=== PATIENT | female | born 1995 | race American Indian/Alaskan Native ===

== ENCOUNTER 2016-07-24 19:08 | Emergency (ER) | payer OTHER ==
[2016-07-24] MEDS ORDERED: MOTRIN PO ONE (23:23)
[2016-07-24] MEDS ORDERED: DELTASONE PO ONE (23:23)
--- NOTE | 2016-07-24 23:28 | Emergency Department Report ---
HPI - General Chief Complaint: Animal Bite Time Seen by Provider: 07/24/16 23:23 - HPI HPI: She is a 21-year-old female who presents to ED complaining of left thigh pain and redness from an insect bite times one day. Patient states yesterday she noticed a bump on her left inner thigh tenderness, painful. Patient states after she took a shot yesterday she saw some white discharge, out of the palm. Patient states she thinks she was bitten but did not see an insect. Patient denies fever/chills/nausea/vomiting/abdominal pain/dizziness/chest pain or shortness of breath. ED Past Medical Hx - Past Medical History Previous Medical History?: No - Surgical History Past Surgical History?: No - Social History Smoking Status: Never Smoker Substance Use Type: None - Medications Home Medications: Home Medications Medication Instructions Recorded Confirmed Last Taken Type Cephalexin [Keflex] 500 mg PO BID #10 capsule 07/24/16 Unknown Rx Ibuprofen [Motrin 800 MG tab] 800 mg PO ONCE #40 tablet 07/24/16 Unknown Rx predniSONE [Deltasone] 5 mg PO QDAY #3 tab 07/24/16 Unknown Rx ED Review of Systems ROS: Stated complaint: INSECT BITE LT LEG Other details as noted in HPI Constitutional: denies: chills, fever Eyes: denies: eye pain, eye discharge, vision change ENT: denies: ear pain, throat pain Respiratory: denies: cough, shortness of breath, wheezing Cardiovascular: denies: chest pain, palpitations, orthopnea Endocrine: no symptoms reported. denies: flushing, intolerance to cold, intolerance to heat Gastrointestinal: denies: abdominal pain, nausea, vomiting, diarrhea, constipation, hematemesis Genitourinary: denies: urgency, dysuria, frequency, hematuria, discharge, abnormal menses Musculoskeletal: denies: back pain, joint swelling, arthralgia Skin: denies: rash, lesions Neurological: denies: headache, weakness, numbness, paresthesias, confusion, abnormal gait Psychiatric: denies: anxiety, depression Hematological/Lymphatic: denies: easy bleeding, easy bruising Physical Exam - Physical Exam Vital Signs: Vital Signs 07/24/16 19:29 Temperature 98.7 F Pulse Rate 94 H Respiratory 20 Rate Blood Pressure 157/106 O2 Sat by Pulse 100 Oximetry Physical Exam: GENERAL: Alert and oriented x3, no apparent distress, Normal Gait, atraumatic. HEAD: Head is normocephalic and a-traumatic. EYES: Extra ocular muscles are intact. Pupils are equal, round, and reactive to light and accommodation. EARS: symetrical, atraumatic, non tender, gross auditory nml bilaterally. NOSE: Nose symetrical, Nontender,Nares appeared normal. MOUTH:Mouth is well hydrated and without lesions. Tonsils nonerythematous or swollen Patent airways. NECK: Supple. Non edematous, No carotid bruits. No lymphadenopathy or thyromegaly. LUNGS: Symetrical with respiration, No wheezing, no rales or crackles, CTAB. HEART: S1, S2 present, regular rate and rhythm without murmur, no rubs, no gallops. ABDOMEN: No organomegaly was noted,Positive bowel sounds, soft, and non- distended. . Nontender to palpation on all Quadrants, NO CVA tenderness. EXTREMITIES/MUSCULOSKELETAL: No cyanosis, clubbing, rash, lesions or edema. Full ROM bilaterally. UE/LE Pulses 2+ bilaterally. LE and UE 5+ strength bilaterally. Left inner upper thigh 0.5 cm cellulitis, nondraining, erythematous. NEUROLOGIC: No focal Deficit, Cranial nerves II through XII are grossly intact. No loss of sensation, PSYCHIATRIC: Mood is congruent with affect, denies suicidal or homicidal ideations. SKIN: Warm and dry, No lesions, No ulceration or induration present. ED Course Vital Signs 07/24/16 19:29 Temperature 98.7 F Pulse Rate 94 H Respiratory 20 Rate Blood Pressure 157/106 O2 Sat by Pulse 100 Oximetry ED Medical Decision Making - Medical Decision Making 21-year-old female presents with cellulitis of the inner thigh. ED course: Patient received Motrin for pain and 10 mg of prednisone. Discussed the patient take antibiotics as prescribed. Vital signs stable. Patient is not in any acute or respiratory distress. Discussed the patient to follow up with primary care physician. Discussed the patient is symptoms worsen or new symptoms arise to return to ED. Discussed warm compresses TID. Critical care attestation.: If time is entered above; I have spent that time in minutes in the direct care of this critically ill patient, excluding procedure time. ED Disposition Clinical Impression: Cellulitis Qualifiers: Site of cellulitis: extremity Site of cellulitis of extremity: lower extremity Laterality: left Qualified Code(s): L03.116 - Cellulitis of left lower limb Disposition: DISCHARGED TO HOME OR SELFCARE Is pt being admited?: No Does the pt Need Aspirin: No Condition: Stable Instructions: Cellulitis (ED), Insect Bite or Sting (ED) Prescriptions: Cephalexin [Keflex] 500 mg PO BID #10 capsule Ibuprofen [Motrin 800 MG tab] 800 mg PO ONCE #40 tablet predniSONE [Deltasone] 5 mg PO QDAY #3 tab Referrals: PRIMARY MD HELADIO [Primary Care Provider] - 3-5 Days LOUIS SPENCER MD [Referring] - 3-5 Days [facility] [Outside] - 3-5 Days [facility] [Outside] - 3-5 Days [facility] [Outside] - 3-5 Days Forms: Work/School Release Form(ED) Time of Disposition: 23:28
[2016-07-24 23:34] VITALS: BP 147/96
== END 2016-07-25 00:28 | disposition home or self-care (01) ==
LOC: ED 19:08
DX: L03.116 Cellulitis of left lower limb (principal)
CPT/HCPCS: 99282; J7512

== ENCOUNTER 2018-12-18 10:05 | Emergency (ER) | payer BC, OTHER ==
[2018-12-18 10:12] VITALS: BP 153/102
--- NOTE | 2018-12-18 11:14 | Emergency Department Report ---
- General Chief Complaint: Sore Throat Stated Complaint: SICK FEELING Time Seen by Provider: 12/18/18 10:42 Source: patient Mode of arrival: Ambulatory Limitations: No Limitations - History of Present Illness Initial Comments: Piedad is a very pleasant healthy 21-year-old female who has burning sensation in her throat and nasal drainage and drainage in the posterior throat. No f ever. No sick contacts. Illness for the past 1-2 days. No previous history of sinus congestion. MD Complaint: sore throat, nasal congestion -: Gradual, days(s) (2) Severity: mild Quality: burning Consistency: constant Associated Symptoms: denies other symptoms - Related Data Previous Rx's Medication Instructions Recorded Last Taken Type Cephalexin [Keflex] 500 mg PO BID #10 capsule 07/24/16 Unknown Rx Ibuprofen [Motrin 800 MG tab] 800 mg PO ONCE #40 tablet 07/24/16 Unknown Rx predniSONE [Deltasone] 5 mg PO QDAY #3 tab 07/24/16 Unknown Rx Fluticasone [Flonase] 1 spray NS QDAY #1 bottle 12/18/18 Unknown Rx Loratadine 10 mg PO DAILY 14 Days #14 capsule 12/18/18 Unknown Rx Allergies Allergy/AdvReac Type Severity Reaction Status Date / Time No Known Allergies Allergy Verified 07/24/16 19:23 ED Review of Systems ROS: Stated complaint: SICK FEELING Other details as noted in HPI Constitutional: denies: fever, malaise ENT: throat pain, congestion Skin: denies: rash, lesions ED Past Medical Hx - Past Medical History Previous Medical History?: No - Surgical History Past Surgical History?: No - Social History Smoking Status: Never Smoker - Medications Home Medications: Home Medications Medication Instructions Recorded Confirmed Last Taken Type Cephalexin [Keflex] 500 mg PO BID #10 capsule 07/24/16 Unknown Rx Ibuprofen [Motrin 800 MG tab] 800 mg PO ONCE #40 tablet 07/24/16 Unknown Rx predniSONE [Deltasone] 5 mg PO QDAY #3 tab 07/24/16 Unknown Rx Fluticasone [Flonase] 1 spray NS QDAY #1 bottle 12/18/18 Unknown Rx Loratadine 10 mg PO DAILY 14 Days #14 capsule 12/18/18 Unknown Rx ED Physical Exam - General Limitations: No Limitations General appearance: alert, in no apparent distress - Head Head exam: Present: atraumatic, normocephalic - Eye Eye exam: Present: normal appearance - ENT ENT exam: Present: mucous membranes moist, other (mildly) - Neck Neck exam: Present: normal inspection - Respiratory Respiratory exam: Present: normal lung sounds bilaterally. Absent: respiratory distress - Cardiovascular Cardiovascular Exam: Present: regular rate, normal rhythm. Absent: systolic murmur, diastolic murmur, rubs, gallop - GI/Abdominal GI/Abdominal exam: Present: soft, normal bowel sounds. Absent: distended, tenderness, guarding, rebound - Extremities Exam Extremities exam: Present: normal inspection - Back Exam Back exam: Present: normal inspection - Neurological Exam Neurological exam: Present: alert, oriented X3 - Psychiatric Psychiatric exam: Present: normal affect, normal mood - Skin Skin exam: Present: warm, dry, intact, normal color. Absent: rash ED Course Vital Signs 12/18/18 10:09 Temperature 97.8 F Pulse Rate 109 H Respiratory 16 Rate Blood Pressure 153/102 O2 Sat by Pulse 100 Oximetry ED Medical Decision Making - Medical Decision Making URI viral pharyngitis Critical care attestation.: If time is entered above; I have spent that time in minutes in the direct care of this critically ill patient, excluding procedure time. ED Disposition Clinical Impression: URI (upper respiratory infection), Viral pharyngitis Disposition: DC-01 TO HOME OR SELFCARE Is pt being admited?: No Does the pt Need Aspirin: No Condition: Stable Instructions: Pharyngitis (ED), Upper Respiratory Infection (ED) Prescriptions: Fluticasone [Flonase] 1 spray NS QDAY #1 bottle Loratadine 10 mg PO DAILY 14 Days #14 capsule Forms: Work/School Release Form(ED)
== END 2018-12-18 11:34 | disposition home or self-care (01) ==
LOC: ED 10:05
DX: J06.9 Acute upper respiratory infection, unspecified (principal); J02.8 Acute pharyngitis due to other specified organisms; B97.89 Other viral agents as the cause of diseases classified elsewhere; Z79.899 Other long term (current) drug therapy
CPT/HCPCS: 99282